=== PATIENT | male | born 1950 | race American Indian/Alaskan Native ===

== ENCOUNTER 2018-06-19 15:16 | Emergency (ER) | payer MEDICARE ==
--- NOTE | 2018-06-19 15:28 | Emergency Department Report ---
Chief Complaint: Fall Stated Complaint: L KNEE/ANKLE PAIN Time Seen by Provider: 06/19/18 15:23 - HPI History of Present Illness: Pt states he fell down the steps that occurred last night pt c/o right knee, right hip, right ankle pain pt has been ambulatory but now pt is using crutches he had at home no numbness or weakness MSE screening note: Focused history and physical exam performed. Due to findings the following was ordered: XR right knee, XR right ankle ED Disposition for MSE Condition: Stable
[2018-06-19 15:35] VITALS: BP 172/89
--- NOTE | 2018-06-19 16:15 | XRay Report ---
PROCEDURE: XR ANKLE 2V RT TECHNIQUE: 2 views of the right ankle HISTORY: fall, right ankle pain COMPARISONS: None. FINDINGS: There is a nondisplaced, spiral fracture of the distal fibula. The ankle mortise remains intact. Ther e is diffuse osteopenia. There is diffuse soft tissue swelling. There is no radiopaque foreign body. IMPRESSION: Nondisplaced spiral fracture of the distal fibula. This document is electronically signed by Ann Romero MD., June 19 2018 04:13:16 PM ET
--- NOTE | 2018-06-19 16:17 | XRay Report ---
PROCEDURE: XR KNEE 1-2V RT TECHNIQUE: 2 views of the right knee HISTORY: fall, right knee pain COMPARISONS: None. FINDINGS: There is normal alignment without acute fracture or dislocation. There is diffuse osteopenia. There i s no joint effusion. There is prepatellar soft tissue swelling. IMPRESSION: No acute bony abnormality of the right knee. Prepatellar soft tissue swelling. This document is electronically signed by Ann Romero MD., June 19 2018 04:15:39 PM ET
[2018-06-19] MEDS ORDERED: NORCO 5/325 PO ONE (16:52)
[2018-06-19] MEDS ORDERED: NORCO 5/325 ONE (16:55)
--- NOTE | 2018-06-19 18:26 | Emergency Department Report ---
ED Fall HPI - General Chief Complaint: Fall Stated Complaint: L KNEE/ANKLE PAIN Time Seen by Provider: 06/19/18 15:23 Source: patient Mode of arrival: Wheelchair - History of Present Illness MD Complaint: fall -: Gradual Fall From: down stairs (#) (1) When Fall Occurred: other (last night) Place Fall Occurred: home Loss of Consciousness: none Prolonged Down Time?: no Symptoms Prior to Fall: none Location: other (right ankle and knee) Location - Extremities: Right: Knee, Ankle Severity: moderate Quality: dull Context: tripped/slipped Associated Symptoms: denies: headache, neck pain, numbness, chest paint, shortness of breath, abdominal pain, hematuria, lightheaded, vertigo, confusion - Related Data Previous Rx's Medication Instructions Recorded Last Taken Type HYDROcodone/APAP 10-325 [[place] 1 each PO Q6HR PRN #14 tablet 06/19/18 Unknown Rx 10/325] Allergies Allergy/AdvReac Type Severity Reaction Status Date / Time No Known Allergies Allergy Verified 06/19/18 15:19 ED Review of Systems ROS: Stated complaint: L KNEE/ANKLE PAIN Other details as noted in HPI Constitutional: denies: chills, fever Eyes: denies: eye pain, eye discharge, vision change ENT: denies: ear pain, throat pain Respiratory: denies: cough, shortness of breath, wheezing Cardiovascular: denies: chest pain, palpitations Endocrine: no symptoms reported Gastrointestinal: denies: abdominal pain, nausea, diarrhea Genitourinary: denies: urgency, dysuria Musculoskeletal: joint swelling. denies: back pain, arthralgia Skin: denies: rash, lesions Neurological: denies: headache, weakness, paresthesias Psychiatric: denies: anxiety, depression Hematological/Lymphatic: denies: easy bleeding, easy bruising ED Past Medical Hx - Past Medical History Hx Diabetes: Yes - Surgical History Additional Surgical History: angioplasty - Social History Smoking Status: Former Smoker Substance Use Type: Prescribed - Medications Home Medications: Home Medications Medication Instructions Recorded Confirmed Last Taken Type HYDROcodone/APAP 10-325 [[place] 1 each PO Q6HR PRN #14 tablet 06/19/18 Unknown Rx 10/325] ED Physical Exam - General Limitations: No Limitations General appearance: alert, in no apparent distress - Head Head exam: Present: atraumatic, normocephalic - Eye Eye exam: Present: normal appearance, PERRL, EOMI Pupils: Present: normal accommodation - ENT ENT exam: Present: normal exam, mucous membranes moist - Neck Neck exam: Present: normal inspection, full ROM - Respiratory Respiratory exam: Present: normal lung sounds bilaterally. Absent: respiratory distress, wheezes, rales, chest wall tenderness, accessory muscle use, decreased breath sounds - Cardiovascular Cardiovascular Exam: Present: regular rate, normal rhythm. Absent: systolic murmur, diastolic murmur, rubs, gallop - GI/Abdominal GI/Abdominal exam: Present: soft, normal bowel sounds - Rectal Rectal exam: Present: deferred - Extremities Exam Extremities exam: Present: normal inspection, tenderness, normal capillary refill, joint swelling. Absent: calf tenderness - Expanded Lower Extremity Exam Right Knee exam: Present: tenderness, swelling, effusion, full knee extension. Absent: abrasion, laceration, ecchymosis, deformity, pain/laxity with valgus, pain/laxity with varus Ankle exam: Present: full ROM, tenderness, swelling, ecchymosis. Absent: crepidus, dislocation, erythema Neuro vascular tendon exam: Present: no vascular compromise. Absent: pulse deficit, abnormal cap refill Gait: Positive: observed and limited by pain - Back Exam Back exam: Present: normal inspection - Neurological Exam Neurological exam: Present: alert, oriented X3 - Psychiatric Psychiatric exam: Present: normal affect, normal mood - Skin Skin exam: Present: warm, dry, intact, normal color. Absent: rash ED Course Vital Signs 06/19/18 15:23 Temperature 98 F Pulse Rate 98 H Respiratory 22 Rate Blood Pressure 172/89 O2 Sat by Pulse 99 Oximetry Critical care attestation.: If time is entered above; I have spent that time in minutes in the direct care of this critically ill patient, excluding procedure time. ED Disposition Clinical Impression: Fracture of distal end of fibula, Effusion, right knee, Strain of right knee Disposition: TO HOME OR SELFCARE Is pt being admited?: No Does the pt Need Aspirin: No Condition: Stable Instructions: Knee Effusion (ED), Ankle Fracture (ED) Prescriptions: HYDROcodone/APAP 10-325 [[place] 10/325] 1 each PO Q6HR PRN #14 tablet PRN Reason: Pain Referrals: MARAL PEREZ MD [Primary Care Provider] - 3-5 Days TOYA ZACARIAS MD [Staff Physician] - 3-5 Days
== END 2018-06-19 18:33 | disposition home or self-care (01) ==
LOC: ED 15:16
DX: S82.444A Nondisplaced spiral fracture of shaft of right fibula, initial encounter for closed fracture (principal); S86.911A Strain of unspecified muscle(s) and tendon(s) at lower leg level, right leg, initial encounter; M25.461 Effusion, right knee; E11.9 Type 2 diabetes mellitus without complications; Z87.891 Personal history of nicotine dependence; W10.9XXA Fall (on) (from) unspecified stairs and steps, initial encounter; Y93.89 Activity, other specified; Y92.89 Other specified places as the place of occurrence of the external cause; Y99.8 Other external cause status